=== PATIENT | male | born 1955 | race Caucasian/White ===

== ENCOUNTER 2021-11-15 17:40 | Inpatient (IN) ==
[2021-11-15] MEDS ORDERED: Nitroglycerin 0.4 MG TAB.SUBL SL PRN (18:46)
[2021-11-15] MEDS ORDERED: *HR* Dextrose 50 % in Water (Syg) 50 ML SYRINGE IVP PRN (18:51)
[2021-11-15] MEDS ORDERED: Dextrose Gel 15 GM/37.5 ML TUBE PO PRN ×2 (18:51)
[2021-11-15] MEDS ORDERED: D5% in Water 1,000 ML IVC PRN (18:51)
[2021-11-15] MEDS ORDERED: Ondansetron ODT 4 MG TAB.RAPDIS SL PRN (18:53)
[2021-11-15] MEDS: Ranolazine 500 MG TAB.ER.12H PO SCH (22:36)
[2021-11-15] MEDS: *HR* OxyCODONE/APAP 5/325 TABLET PO PRN (22:37)
[2021-11-15] MEDS: Insulin LISPRO 300 UNITS/3 ML VIAL SUBQ SCH (22:37)
[2021-11-15] MEDS: Acetaminophen 325 MG TABLET PO PRN (23:24)
[2021-11-16 05:58] LABS: Basophils # 0.1 K/mcL (0.0-0.2); Basophils % 0.8 %; Eosinophils # 0.2 K/mcL (0.0-0.6); Eosinophils % 2.8 %; Hematocrit 46.8 % (37.5-50.1); Hemoglobin 15.6 g/dL (12.9-16.9); Immature Granulocytes % 0.8 % (0-4); Lymphocytes # 2.9 K/mcL (0.6-4.6); Lymphocytes % 36.4 %; Mean Corpuscular HGB Conc 33.3 g/dL (31.6-35.5); Mean Platelet Volume 9.8 fL (9.4-12.4); Monocytes # 0.7 K/mcL (0.0-1.3); Monocytes % 8.9 %; Platelet Count 255 K/mcL (140-400); Red Blood Count 5.38 M/mcL (4.19-5.50); Red Cell Distribution Width 13.9 % (11.5-14.5); Segmented Neutrophils % 50.3 %
[2021-11-16 06:34] LABS: INR 2.4; Prothrombin Time 27.1 Seconds (9.4-12.1)
[2021-11-16 07:54] LABS: Calcium 9.6 mg/dL (8.6-10.3); Potassium 4.1 mEq/L (3.5-5.1)
[2021-11-16] MEDS: amLODIPine 5 MG TABLET PO SCH (08:26)
[2021-11-16] MEDS: Aspirin Enteric Coated 81 MG Tablet PO SCH (08:26)
[2021-11-16] MEDS: Fenofibrate 54 MG TABLET PO SCH (08:26)
[2021-11-16] MEDS: BuPROPion XL (24 HR) 150 MG TABLET PO SCH (08:26)
[2021-11-16] MEDS: Magnesium Oxide 400 MG TABLET PO SCH (08:26)
[2021-11-16] MEDS: Ranolazine 500 MG TAB.ER.12H PO SCH ×2 (08:26→20:17)
[2021-11-16] MEDS: Omega-3 Acid Ethyl Esters [Lovaza] 1 GM PO SCH ×2 (08:27→20:34)
[2021-11-16] MEDS: Insulin LISPRO 300 UNITS/3 ML VIAL SUBQ SCH ×4 (08:31→20:18)
[2021-11-16] MEDS: *HR* Insulin Regular U-500 500 UNIT/ML SUBQ SCH ×3 (09:28→17:16)
[2021-11-16] MEDS: *HR* OxyCODONE/APAP 5/325 TABLET PO PRN (13:58)
[2021-11-16] MEDS ORDERED: *HR* Warfarin 2.5 MG TABLET PO ONE (18:00)
[2021-11-16] MEDS ORDERED: Warfarin perPT PO PRN (18:00)
[2021-11-17 07:54] LABS: INR 2.7; Prothrombin Time 30.3 Seconds (9.4-12.1)
[2021-11-17] MEDS: Insulin LISPRO 300 UNITS/3 ML VIAL SUBQ SCH ×4 (09:22→20:28)
[2021-11-17] MEDS: Omega-3 Acid Ethyl Esters [Lovaza] 1 GM PO SCH ×2 (09:23→20:27)
[2021-11-17] MEDS: Magnesium Oxide 400 MG TABLET PO SCH (09:23)
[2021-11-17] MEDS: BuPROPion XL (24 HR) 150 MG TABLET PO SCH (09:23)
[2021-11-17] MEDS: Ranolazine 500 MG TAB.ER.12H PO SCH ×2 (09:23→20:27)
[2021-11-17] MEDS: Fenofibrate 54 MG TABLET PO SCH (09:23)
[2021-11-17] MEDS: amLODIPine 5 MG TABLET PO SCH (09:23)
[2021-11-17] MEDS: Aspirin Enteric Coated 81 MG Tablet PO SCH (09:23)
[2021-11-17] MEDS: *HR* Insulin Regular U-500 500 UNIT/ML SUBQ SCH ×3 (09:24→17:02)
[2021-11-17] MEDS: *HR* OxyCODONE/APAP 5/325 TABLET PO PRN (10:51)
[2021-11-17] MEDS: Acetaminophen 325 MG TABLET PO PRN (12:31)
[2021-11-17] MEDS ORDERED: *HR* OxyCODONE/APAP 5/325 TABLET PO PRN (14:23)
[2021-11-17] MEDS: *HR* OxyCODONE/APAP 7.5/325 TABLET PO PRN (14:32)
[2021-11-17] MEDS ORDERED: *HR* Warfarin 2.5 MG TABLET PO ONE (18:00)
[2021-11-18] MEDS: *HR* OxyCODONE/APAP 7.5/325 TABLET PO PRN ×2 (00:05→20:58)
[2021-11-18] MEDS: Insulin LISPRO 300 UNITS/3 ML VIAL SUBQ SCH ×4 (07:22→21:30)
[2021-11-18 07:37] LABS: INR 2.6
[2021-11-18] MEDS: amLODIPine 5 MG TABLET PO SCH (08:33)
[2021-11-18] MEDS: Magnesium Oxide 400 MG TABLET PO SCH (08:33)
[2021-11-18] MEDS: Ranolazine 500 MG TAB.ER.12H PO SCH ×2 (08:33→20:58)
[2021-11-18] MEDS: Fenofibrate 54 MG TABLET PO SCH (08:33)
[2021-11-18] MEDS: BuPROPion XL (24 HR) 150 MG TABLET PO SCH (08:34)
[2021-11-18] MEDS: Aspirin Enteric Coated 81 MG Tablet PO SCH (08:34)
[2021-11-18] MEDS: Omega-3 Acid Ethyl Esters [Lovaza] 1 GM PO SCH ×2 (08:35→21:30)
[2021-11-18] MEDS: *HR* Insulin Regular U-500 500 UNIT/ML SUBQ SCH ×3 (09:04→18:01)
[2021-11-18] MEDS ORDERED: *HR* Warfarin 2.5 MG TABLET PO ONE (18:00)
[2021-11-19] MEDS: Insulin LISPRO 300 UNITS/3 ML VIAL SUBQ SCH ×4 (07:35→20:48)
[2021-11-19 09:15] LABS: INR 2.3
[2021-11-19] MEDS: Fenofibrate 54 MG TABLET PO SCH (09:51)
[2021-11-19] MEDS: Aspirin Enteric Coated 81 MG Tablet PO SCH (09:51)
[2021-11-19] MEDS: amLODIPine 5 MG TABLET PO SCH (09:53)
[2021-11-19] MEDS: Magnesium Oxide 400 MG TABLET PO SCH (09:53)
[2021-11-19] MEDS: BuPROPion XL (24 HR) 150 MG TABLET PO SCH (09:53)
[2021-11-19] MEDS: Ranolazine 500 MG TAB.ER.12H PO SCH ×2 (09:53→20:47)
[2021-11-19] MEDS: Omega-3 Acid Ethyl Esters [Lovaza] 1 GM PO SCH ×2 (09:54→20:49)
[2021-11-19] MEDS: *HR* Insulin Regular U-500 500 UNIT/ML SUBQ SCH ×3 (12:11→18:50)
[2021-11-19] MEDS ORDERED: *HR* Warfarin 5 MG TABLET PO ONE (18:00)
[2021-11-20] MEDS: Insulin LISPRO 300 UNITS/3 ML VIAL SUBQ SCH ×4 (08:03→20:38)
[2021-11-20] MEDS: Ranolazine 500 MG TAB.ER.12H PO SCH ×2 (08:17→20:02)
[2021-11-20] MEDS: BuPROPion XL (24 HR) 150 MG TABLET PO SCH (08:18)
[2021-11-20] MEDS: Fenofibrate 54 MG TABLET PO SCH (08:18)
[2021-11-20] MEDS: Aspirin Enteric Coated 81 MG Tablet PO SCH (08:18)
[2021-11-20] MEDS: amLODIPine 5 MG TABLET PO SCH (08:18)
[2021-11-20] MEDS: Magnesium Oxide 400 MG TABLET PO SCH (08:18)
[2021-11-20] MEDS: Omega-3 Acid Ethyl Esters [Lovaza] 1 GM PO SCH ×2 (08:20→21:24)
[2021-11-20] MEDS: *HR* Insulin Regular U-500 500 UNIT/ML SUBQ SCH ×3 (08:27→17:46)
[2021-11-20 09:38] LABS: INR 2.1; Prothrombin Time 23.4 Seconds (9.4-12.1)
[2021-11-20] MEDS ORDERED: *HR* Warfarin 2.5 MG TABLET PO ONE (18:00)
[2021-11-21] MEDS: Insulin LISPRO 300 UNITS/3 ML VIAL SUBQ SCH ×4 (07:28→21:18)
[2021-11-21 07:58] LABS: INR 2.3; Prothrombin Time 25.6 Seconds (9.4-12.1)
[2021-11-21] MEDS: BuPROPion XL (24 HR) 150 MG TABLET PO SCH (08:08)
[2021-11-21] MEDS: Magnesium Oxide 400 MG TABLET PO SCH (08:08)
[2021-11-21] MEDS: amLODIPine 5 MG TABLET PO SCH (08:08)
[2021-11-21] MEDS: Aspirin Enteric Coated 81 MG Tablet PO SCH (08:09)
[2021-11-21] MEDS: Fenofibrate 54 MG TABLET PO SCH (08:09)
[2021-11-21] MEDS: Ranolazine 500 MG TAB.ER.12H PO SCH ×2 (08:09→21:18)
[2021-11-21] MEDS: *HR* Insulin Regular U-500 500 UNIT/ML SUBQ SCH ×3 (09:06→17:09)
[2021-11-21] MEDS: Omega-3 Acid Ethyl Esters [Lovaza] 1 GM PO SCH ×2 (09:08→21:19)
[2021-11-21] MEDS ORDERED: *HR* Warfarin 5 MG TABLET PO ONE (18:00)
[2021-11-22 07:30] LABS: INR 2.6; Prothrombin Time 28.3 Seconds (9.4-12.1)
[2021-11-22 07:35] VITALS: BP 153/70; PULSE 57; RESP 18; TEMP 98.2; O2SAT 94
[2021-11-22] MEDS: Fenofibrate 54 MG TABLET PO SCH (07:46)
[2021-11-22] MEDS: BuPROPion XL (24 HR) 150 MG TABLET PO SCH (07:47)
[2021-11-22] MEDS: Ranolazine 500 MG TAB.ER.12H PO SCH (07:47)
[2021-11-22] MEDS: Magnesium Oxide 400 MG TABLET PO SCH (07:47)
[2021-11-22] MEDS: Aspirin Enteric Coated 81 MG Tablet PO SCH (07:48)
[2021-11-22] MEDS: amLODIPine 5 MG TABLET PO SCH (07:48)
[2021-11-22] MEDS: Omega-3 Acid Ethyl Esters [Lovaza] 1 GM PO SCH (07:52)
[2021-11-22] MEDS: Insulin LISPRO 300 UNITS/3 ML VIAL SUBQ SCH ×2 (08:07→12:54)
[2021-11-22] MEDS: *HR* Insulin Regular U-500 500 UNIT/ML SUBQ SCH ×2 (08:47→12:58)
[2021-11-22] MEDS ORDERED: *HR* Warfarin 2.5 MG TABLET PO ONE (18:00)
== END 2021-11-22 16:30 | disposition home health service (06) | DRG 689 ==
LOC: INPPIK 22:00
PROVIDERS: ADMIT Family Medicine; ATTEND Family Medicine

== ENCOUNTER 2022-03-24 11:55 | Inpatient (IN) ==
[2022-03-24] MEDS ORDERED: Nitroglycerin 0.4 MG TAB.SUBL SL PRN (14:46)
[2022-03-24] MEDS ORDERED: Dextrose 4 GM Chewable Tablets PO PRN ×2 (15:02)
[2022-03-24] MEDS ORDERED: *HR* Dextrose 50 % in Water (Syg) 50 ML SYRINGE IVP PRN (15:02)
[2022-03-24] MEDS ORDERED: D5% in Water 1,000 ML IVC PRN (15:02)
[2022-03-24] MEDS: cephALEXin 500 MG CAPSULE PO SCH ×2 (16:59→21:18)
[2022-03-24] MEDS: Insulin LISPRO 300 UNITS/3 ML VIAL SUBQ SCH ×2 (17:02→20:58)
[2022-03-24] MEDS: *HR* OxyCODONE/APAP 5/325 TABLET PO PRN ×2 (17:58→21:39)
[2022-03-24] MEDS: Ranolazine 500 MG TAB.ER.12H PO SCH (21:18)
[2022-03-24] MEDS: Nystatin Cream 15 GM TUBE TP SCH (21:18)
[2022-03-24] MEDS: Nystatin POWDER 30 GM BOTTLE TP SCH (21:18)
[2022-03-24] MEDS: *HR* Enoxaparin 120 MG/0.8 ML SYRINGE SQ SCH (21:33)
[2022-03-24] MEDS: *HR* Insulin Regular U-500 500 UNIT/ML SUBQ SCH (23:38)
[2022-03-24] MEDS ORDERED: Morphine Sulfate 2 MG/ML SYRINGE IVP PRN (23:56)
[2022-03-25 02:34] LABS: Bilirubin,Urine Negative (Negative); Blood,Urine Moderate (Negative); Clarity,Urine Cloudy (Clear); Glucose,Urine (UA) 250 mg/dL (Normal); Ketones,Urine Negative (Negative); Leukocyte Esterase,Urine Moderate (Negative); Nitrite,Urine Negative (Negative); Protein,Urine 100 mg/dL (Neg-Trace); Urobilinogen,Urine Normal (Normal)
[2022-03-25 02:35] LABS: Color,Urine Light Yellow (Yellow)
[2022-03-25 02:41] LABS: RBC,Urine Present per hpf (0-3); WBC,Urine TNTC per hpf (0-3)
[2022-03-25] MEDS: *HR* OxyCODONE/APAP 5/325 TABLET PO PRN (03:56)
[2022-03-25] MEDS: hydrOXYzine pamoate 25 MG CAPSULE PO PRN (03:57)
[2022-03-25 07:18] LABS: Basophils # 0.1 K/mcL (0.0-0.2); Basophils % 0.9 %; Eosinophils # 0.2 K/mcL (0.0-0.6); Eosinophils % 1.9 %; Hematocrit 43.7 % (37.5-50.1); Hemoglobin 13.6 g/dL (12.9-16.9); Immature Granulocytes % 1.9 % (0-4); Lymphocytes # 2.9 K/mcL (0.6-4.6); Lymphocytes % 37.3 %; Mean Corpuscular HGB Conc 31.1 g/dL (31.6-35.5); Mean Corpuscular Hemoglobin 27.4 pg (28.0-33.3); Mean Corpuscular Volume 88.1 fL (83.0-100.0); Mean Platelet Volume 10.3 fL (9.4-12.4); Monocytes # 0.8 K/mcL (0.0-1.3); Neutrophils # 3.8 K/mcL (1.6-8.9); Platelet Count 287 K/mcL (140-400); Red Blood Count 4.96 M/mcL (4.19-5.50); Red Cell Distribution Width 13.9 % (11.5-14.5); White Blood Count 7.9 K/mcL (4.3-11.1)
[2022-03-25 07:38] LABS: BUN/Creatinine Ratio 27 (6-26); Blood Urea Nitrogen 36 mg/dL (8-23); Calcium 9.2 mg/dL (8.6-10.3); Carbon Dioxide 24 mEq/L (23-29); Chloride 102 mEq/L (98-107); Glucose 253 mg/dL (70-105); Osmolality,Calculated 299 (280-300); Potassium 4.2 mEq/L (3.5-5.1); Sodium 136 mEq/L (136-145); eGFR For African Americans > 60 (> 60); eGFR For Non-African Americans 54 (> 60)
[2022-03-25] MEDS: *HR* HYDROmorphone 2 MG TABLET PO PRN ×3 (08:45→18:21)
[2022-03-25] MEDS: Fenofibrate 54 MG TABLET PO SCH (08:45)
[2022-03-25] MEDS: Aspirin Enteric Coated 81 MG Tablet PO SCH (08:46)
[2022-03-25] MEDS: Loratadine 10 MG TABLET PO SCH (08:46)
[2022-03-25] MEDS: Vitamin B Complex/Vit C/Vit E 1 EACH TABLET PO SCH (08:46)
[2022-03-25] MEDS: Ranolazine 500 MG TAB.ER.12H PO SCH ×2 (08:46→20:49)
[2022-03-25] MEDS: BuPROPion XL (24 HR) 150 MG TABLET PO SCH (08:46)
[2022-03-25] MEDS: Magnesium Oxide 400 MG TABLET PO SCH (08:47)
[2022-03-25] MEDS: *HR* Enoxaparin 120 MG/0.8 ML SYRINGE SQ SCH ×2 (08:47→20:53)
[2022-03-25] MEDS: cephALEXin 500 MG CAPSULE PO SCH ×4 (08:47→20:49)
[2022-03-25] MEDS: Insulin LISPRO 300 UNITS/3 ML VIAL SUBQ SCH ×4 (08:47→20:49)
[2022-03-25] MEDS: amLODIPine 5 MG TABLET PO SCH (08:47)
[2022-03-25] MEDS: Nystatin POWDER 30 GM BOTTLE TP SCH ×2 (08:49→21:11)
[2022-03-25] MEDS: Nystatin Cream 15 GM TUBE TP SCH ×2 (08:49→21:11)
[2022-03-25] MEDS: *HR* Insulin Regular U-500 500 UNIT/ML SUBQ SCH ×3 (09:02→20:49)
[2022-03-26] MEDS: *HR* Enoxaparin 120 MG/0.8 ML SYRINGE SQ SCH ×2 (08:17→21:06)
[2022-03-26] MEDS: Ranolazine 500 MG TAB.ER.12H PO SCH ×2 (08:21→21:06)
[2022-03-26] MEDS: Fenofibrate 54 MG TABLET PO SCH (08:21)
[2022-03-26] MEDS: Vitamin B Complex/Vit C/Vit E 1 EACH TABLET PO SCH (08:21)
[2022-03-26] MEDS: Aspirin Enteric Coated 81 MG Tablet PO SCH (08:22)
[2022-03-26] MEDS: amLODIPine 5 MG TABLET PO SCH (08:22)
[2022-03-26] MEDS: Magnesium Oxide 400 MG TABLET PO SCH (08:22)
[2022-03-26] MEDS: BuPROPion XL (24 HR) 150 MG TABLET PO SCH (08:22)
[2022-03-26] MEDS: Loratadine 10 MG TABLET PO SCH (08:22)
[2022-03-26] MEDS: cephALEXin 500 MG CAPSULE PO SCH ×4 (08:22→21:06)
[2022-03-26] MEDS: Insulin LISPRO 300 UNITS/3 ML VIAL SUBQ SCH ×4 (08:23→21:06)
[2022-03-26] MEDS: *HR* Insulin Regular U-500 500 UNIT/ML SUBQ SCH ×2 (08:23→12:14)
[2022-03-26] MEDS: Nystatin Cream 15 GM TUBE TP SCH ×2 (08:24→21:08)
[2022-03-26] MEDS: Nystatin POWDER 30 GM BOTTLE TP SCH ×2 (08:24→21:08)
[2022-03-26] MEDS: *HR* HYDROmorphone 2 MG TABLET PO PRN ×2 (11:31→21:05)
[2022-03-27] MEDS: Acetaminophen 325 MG TABLET PO PRN (05:36)
[2022-03-27] MEDS: amLODIPine 5 MG TABLET PO SCH (09:07)
[2022-03-27] MEDS: Loratadine 10 MG TABLET PO SCH (09:08)
[2022-03-27] MEDS: Fenofibrate 54 MG TABLET PO SCH (09:09)
[2022-03-27] MEDS: Aspirin Enteric Coated 81 MG Tablet PO SCH (09:09)
[2022-03-27] MEDS: Vitamin B Complex/Vit C/Vit E 1 EACH TABLET PO SCH (09:09)
[2022-03-27] MEDS: Ranolazine 500 MG TAB.ER.12H PO SCH ×2 (09:09→20:12)
[2022-03-27] MEDS: BuPROPion XL (24 HR) 150 MG TABLET PO SCH (09:09)
[2022-03-27] MEDS: cephALEXin 500 MG CAPSULE PO SCH ×4 (09:09→20:12)
[2022-03-27] MEDS: Magnesium Oxide 400 MG TABLET PO SCH (09:09)
[2022-03-27] MEDS: Insulin LISPRO 300 UNITS/3 ML VIAL SUBQ SCH ×4 (09:10→20:13)
[2022-03-27] MEDS: *HR* Insulin Regular U-500 500 UNIT/ML SUBQ SCH ×2 (09:10→12:02)
[2022-03-27] MEDS: Nystatin POWDER 30 GM BOTTLE TP SCH ×2 (09:11→20:12)
[2022-03-27] MEDS: Nystatin Cream 15 GM TUBE TP SCH ×2 (09:11→20:13)
[2022-03-27] MEDS: *HR* Enoxaparin 120 MG/0.8 ML SYRINGE SQ SCH ×2 (09:11→20:12)
[2022-03-27] MEDS: Ergocalciferol (VIT D2) 50,000 UNIT (1.25MG) CAP PO SCH (09:14)
[2022-03-27] MEDS: *HR* HYDROmorphone 2 MG TABLET PO PRN ×2 (16:59→21:09)
[2022-03-27 18:27] LABS: Bilirubin,Urine Negative (Negative); Blood,Urine Moderate (Negative); Clarity,Urine Turbid (Clear); Color,Urine Yellow (Yellow); Glucose,Urine (UA) Normal (Normal); Ketones,Urine Negative (Negative); Leukocyte Esterase,Urine Large (Negative); Nitrite,Urine Negative (Negative); PH,Urine 5.5 pH Units (5.0-8.0); Protein,Urine 100 mg/dL (Neg-Trace); Urobilinogen,Urine Normal (Normal)
[2022-03-27 18:35] LABS: Squamous Epithelial Cell,Urine Few per hpf (None-Few); WBC,Urine TNTC per hpf (0-3)
[2022-03-27 18:36] LABS: Budding Yeast,Urine Few per hpf (None Seen)
[2022-03-28] MEDS: hydrOXYzine pamoate 25 MG CAPSULE PO PRN (01:11)
[2022-03-28 07:06] LABS: Basophils # 0.1 K/mcL (0.0-0.2); Basophils % 1.3 %; Eosinophils # 0.2 K/mcL (0.0-0.6); Eosinophils % 3.4 %; Hematocrit 43.8 % (37.5-50.1); Hemoglobin 13.5 g/dL (12.9-16.9); Immature Granulocytes % 2.1 % (0-4); Lymphocytes # 2.9 K/mcL (0.6-4.6); Lymphocytes % 40.4 %; Mean Corpuscular HGB Conc 30.8 g/dL (31.6-35.5); Mean Corpuscular Hemoglobin 27.1 pg (28.0-33.3); Mean Corpuscular Volume 87.8 fL (83.0-100.0); Mean Platelet Volume 10.2 fL (9.4-12.4); Monocytes # 0.5 K/mcL (0.0-1.3); Monocytes % 6.7 %; Neutrophils # 3.3 K/mcL (1.6-8.9); Platelet Count 272 K/mcL (140-400); Red Blood Count 4.99 M/mcL (4.19-5.50); Segmented Neutrophils % 46.1 %; White Blood Count 7.2 K/mcL (4.3-11.1)
[2022-03-28 07:28] LABS: BUN/Creatinine Ratio 21 (6-26); Blood Urea Nitrogen 29 mg/dL (8-23); Calcium 9.4 mg/dL (8.6-10.3); Carbon Dioxide 26 mEq/L (23-29); Chloride 102 mEq/L (98-107); Glucose 235 mg/dL (70-105); Osmolality,Calculated 295 (280-300); Potassium 4.2 mEq/L (3.5-5.1); Sodium 136 mEq/L (136-145); eGFR For African Americans > 60 (> 60); eGFR For Non-African Americans 53 (> 60)
[2022-03-28] MEDS: *HR* Enoxaparin 120 MG/0.8 ML SYRINGE SQ SCH ×2 (10:18→21:52)
[2022-03-28] MEDS: *HR* Insulin Regular U-500 500 UNIT/ML SUBQ SCH ×2 (10:19→11:17)
[2022-03-28] MEDS: Insulin LISPRO 300 UNITS/3 ML VIAL SUBQ SCH ×4 (10:19→21:52)
[2022-03-28] MEDS: amLODIPine 5 MG TABLET PO SCH (10:20)
[2022-03-28] MEDS: BuPROPion XL (24 HR) 150 MG TABLET PO SCH (10:20)
[2022-03-28] MEDS: Fenofibrate 54 MG TABLET PO SCH (10:20)
[2022-03-28] MEDS: Loratadine 10 MG TABLET PO SCH (10:20)
[2022-03-28] MEDS: Aspirin Enteric Coated 81 MG Tablet PO SCH (10:20)
[2022-03-28] MEDS: Ranolazine 500 MG TAB.ER.12H PO SCH ×2 (10:20→21:51)
[2022-03-28] MEDS: Nystatin Cream 15 GM TUBE TP SCH ×2 (10:21→21:53)
[2022-03-28] MEDS: cephALEXin 500 MG CAPSULE PO SCH ×4 (10:21→21:51)
[2022-03-28] MEDS: Vitamin B Complex/Vit C/Vit E 1 EACH TABLET PO SCH (10:21)
[2022-03-28] MEDS: Magnesium Oxide 400 MG TABLET PO SCH (10:21)
[2022-03-28] MEDS: Nystatin POWDER 30 GM BOTTLE TP SCH ×2 (10:22→21:53)
[2022-03-28] MEDS: *HR* HYDROmorphone 2 MG TABLET PO PRN (22:00)
[2022-03-29] MEDS: Insulin LISPRO 300 UNITS/3 ML VIAL SUBQ SCH ×4 (10:25→21:43)
[2022-03-29] MEDS: Ranolazine 500 MG TAB.ER.12H PO SCH ×2 (10:26→21:42)
[2022-03-29] MEDS: Fluconazole 150 MG TABLET PO SCH (10:26)
[2022-03-29] MEDS: Vitamin B Complex/Vit C/Vit E 1 EACH TABLET PO SCH (10:26)
[2022-03-29] MEDS: cephALEXin 500 MG CAPSULE PO SCH ×4 (10:26→21:42)
[2022-03-29] MEDS: BuPROPion XL (24 HR) 150 MG TABLET PO SCH (10:26)
[2022-03-29] MEDS: Fenofibrate 54 MG TABLET PO SCH (10:27)
[2022-03-29] MEDS: Loratadine 10 MG TABLET PO SCH (10:27)
[2022-03-29] MEDS: Aspirin Enteric Coated 81 MG Tablet PO SCH (10:27)
[2022-03-29] MEDS: Magnesium Oxide 400 MG TABLET PO SCH (10:27)
[2022-03-29] MEDS: amLODIPine 5 MG TABLET PO SCH (10:27)
[2022-03-29] MEDS: Nystatin Cream 15 GM TUBE TP SCH ×2 (10:28→21:42)
[2022-03-29] MEDS: Nystatin POWDER 30 GM BOTTLE TP SCH ×2 (10:28→21:42)
[2022-03-29] MEDS: *HR* Enoxaparin 120 MG/0.8 ML SYRINGE SQ SCH ×2 (10:28→21:43)
[2022-03-29] MEDS: *HR* Insulin Regular U-500 500 UNIT/ML SUBQ SCH ×2 (10:38→12:54)
[2022-03-29] MEDS: *HR* HYDROmorphone 2 MG TABLET PO PRN ×2 (15:40→21:46)
[2022-03-30] MEDS: Fenofibrate 54 MG TABLET PO SCH (09:54)
[2022-03-30] MEDS: *HR* Enoxaparin 120 MG/0.8 ML SYRINGE SQ SCH ×2 (09:54→21:00)
[2022-03-30] MEDS: Fluconazole 150 MG TABLET PO SCH (09:54)
[2022-03-30] MEDS: cephALEXin 500 MG CAPSULE PO SCH ×4 (09:55→21:00)
[2022-03-30] MEDS: amLODIPine 5 MG TABLET PO SCH (09:55)
[2022-03-30] MEDS: Vitamin B Complex/Vit C/Vit E 1 EACH TABLET PO SCH (09:55)
[2022-03-30] MEDS: Loratadine 10 MG TABLET PO SCH (09:55)
[2022-03-30] MEDS: Magnesium Oxide 400 MG TABLET PO SCH (09:55)
[2022-03-30] MEDS: BuPROPion XL (24 HR) 150 MG TABLET PO SCH (09:55)
[2022-03-30] MEDS: Ranolazine 500 MG TAB.ER.12H PO SCH ×2 (09:55→21:00)
[2022-03-30] MEDS: Nystatin POWDER 30 GM BOTTLE TP SCH ×2 (09:56→21:08)
[2022-03-30] MEDS: Nystatin Cream 15 GM TUBE TP SCH ×2 (09:56→21:08)
[2022-03-30] MEDS: Aspirin Enteric Coated 81 MG Tablet PO SCH (09:56)
[2022-03-30] MEDS: Insulin LISPRO 300 UNITS/3 ML VIAL SUBQ SCH ×4 (09:58→21:08)
[2022-03-30] MEDS: *HR* HYDROmorphone 2 MG TABLET PO PRN ×3 (10:02→21:00)
[2022-03-30] MEDS: *HR* Insulin Regular U-500 500 UNIT/ML SUBQ SCH ×2 (10:03→13:57)
[2022-03-31] MEDS: *HR* HYDROmorphone 2 MG TABLET PO PRN ×5 (01:42→21:46)
[2022-03-31] MEDS: Acetaminophen 325 MG TABLET PO PRN ×2 (04:59→13:27)
[2022-03-31] MEDS: Fluconazole 150 MG TABLET PO SCH (08:30)
[2022-03-31] MEDS: Fenofibrate 54 MG TABLET PO SCH (08:30)
[2022-03-31] MEDS: Loratadine 10 MG TABLET PO SCH (08:31)
[2022-03-31] MEDS: Magnesium Oxide 400 MG TABLET PO SCH (08:31)
[2022-03-31] MEDS: amLODIPine 5 MG TABLET PO SCH (08:31)
[2022-03-31] MEDS: Ranolazine 500 MG TAB.ER.12H PO SCH ×2 (08:31→21:46)
[2022-03-31] MEDS: Aspirin Enteric Coated 81 MG Tablet PO SCH (08:31)
[2022-03-31] MEDS: Vitamin B Complex/Vit C/Vit E 1 EACH TABLET PO SCH (08:31)
[2022-03-31] MEDS: BuPROPion XL (24 HR) 150 MG TABLET PO SCH (08:32)
[2022-03-31] MEDS: *HR* Enoxaparin 120 MG/0.8 ML SYRINGE SQ SCH ×2 (08:32→21:50)
[2022-03-31] MEDS: cephALEXin 500 MG CAPSULE PO SCH ×4 (08:32→21:46)
[2022-03-31] MEDS: Insulin LISPRO 300 UNITS/3 ML VIAL SUBQ SCH ×4 (08:33→20:20)
[2022-03-31] MEDS: *HR* Insulin Regular U-500 500 UNIT/ML SUBQ SCH ×2 (08:35→12:04)
[2022-03-31] MEDS: Nystatin POWDER 30 GM BOTTLE TP SCH ×2 (08:36→21:47)
[2022-03-31] MEDS: Nystatin Cream 15 GM TUBE TP SCH ×2 (11:45→21:49)
[2022-03-31] MEDS: hydrOXYzine pamoate 25 MG CAPSULE PO PRN (21:46)
[2022-04-01] MEDS: Fenofibrate 54 MG TABLET PO SCH (09:34)
[2022-04-01] MEDS: Fluconazole 150 MG TABLET PO SCH (09:34)
[2022-04-01] MEDS: Magnesium Oxide 400 MG TABLET PO SCH (09:35)
[2022-04-01] MEDS: Loratadine 10 MG TABLET PO SCH (09:35)
[2022-04-01] MEDS: Ranolazine 500 MG TAB.ER.12H PO SCH ×2 (09:35→22:32)
[2022-04-01] MEDS: Nystatin Cream 15 GM TUBE TP SCH ×2 (09:35→22:35)
[2022-04-01] MEDS: Aspirin Enteric Coated 81 MG Tablet PO SCH (09:35)
[2022-04-01] MEDS: amLODIPine 5 MG TABLET PO SCH (09:35)
[2022-04-01] MEDS: Nystatin POWDER 30 GM BOTTLE TP SCH ×2 (09:35→22:35)
[2022-04-01] MEDS: Vitamin B Complex/Vit C/Vit E 1 EACH TABLET PO SCH (09:35)
[2022-04-01] MEDS: cephALEXin 500 MG CAPSULE PO SCH ×4 (09:35→22:32)
[2022-04-01] MEDS: BuPROPion XL (24 HR) 150 MG TABLET PO SCH (09:35)
[2022-04-01] MEDS: *HR* Enoxaparin 120 MG/0.8 ML SYRINGE SQ SCH ×2 (09:42→22:32)
[2022-04-01] MEDS: Insulin LISPRO 300 UNITS/3 ML VIAL SUBQ SCH ×4 (09:42→22:33)
[2022-04-01] MEDS: *HR* Insulin Regular U-500 500 UNIT/ML SUBQ SCH ×2 (09:46→11:58)
[2022-04-01] MEDS: *HR* HYDROmorphone 2 MG TABLET PO PRN (22:40)
[2022-04-01] MEDS: hydrOXYzine pamoate 25 MG CAPSULE PO PRN (22:41)
[2022-04-02] MEDS: Acetaminophen 325 MG TABLET PO PRN (01:40)
[2022-04-02] MEDS: *HR* HYDROmorphone 2 MG TABLET PO PRN ×4 (04:21→21:08)
[2022-04-02] MEDS: Insulin LISPRO 300 UNITS/3 ML VIAL SUBQ SCH ×4 (08:59→21:08)
[2022-04-02] MEDS: *HR* Insulin Regular U-500 500 UNIT/ML SUBQ SCH ×2 (08:59→12:13)
[2022-04-02] MEDS: Fenofibrate 54 MG TABLET PO SCH (09:01)
[2022-04-02] MEDS: amLODIPine 5 MG TABLET PO SCH (09:02)
[2022-04-02] MEDS: BuPROPion XL (24 HR) 150 MG TABLET PO SCH (09:02)
[2022-04-02] MEDS: *HR* Enoxaparin 120 MG/0.8 ML SYRINGE SQ SCH ×2 (09:02→21:09)
[2022-04-02] MEDS: Magnesium Oxide 400 MG TABLET PO SCH (09:02)
[2022-04-02] MEDS: Aspirin Enteric Coated 81 MG Tablet PO SCH (09:02)
[2022-04-02] MEDS: Vitamin B Complex/Vit C/Vit E 1 EACH TABLET PO SCH (09:02)
[2022-04-02] MEDS: Ranolazine 500 MG TAB.ER.12H PO SCH ×2 (09:02→21:08)
[2022-04-02] MEDS: cephALEXin 500 MG CAPSULE PO SCH ×4 (09:02→21:07)
[2022-04-02] MEDS: Loratadine 10 MG TABLET PO SCH (09:02)
[2022-04-02] MEDS: Fluconazole 150 MG TABLET PO SCH (09:03)
[2022-04-02] MEDS: Nystatin POWDER 30 GM BOTTLE TP SCH ×2 (09:06→21:09)
[2022-04-02] MEDS: Nystatin Cream 15 GM TUBE TP SCH ×2 (09:06→21:09)
[2022-04-02] MEDS: hydrOXYzine pamoate 25 MG CAPSULE PO PRN (21:08)
[2022-04-03] MEDS: Vitamin B Complex/Vit C/Vit E 1 EACH TABLET PO SCH (08:53)
[2022-04-03] MEDS: Loratadine 10 MG TABLET PO SCH (08:53)
[2022-04-03] MEDS: *HR* Enoxaparin 120 MG/0.8 ML SYRINGE SQ SCH ×2 (08:53→20:24)
[2022-04-03] MEDS: cephALEXin 500 MG CAPSULE PO SCH ×2 (08:53→11:32)
[2022-04-03] MEDS: Fenofibrate 54 MG TABLET PO SCH (08:53)
[2022-04-03] MEDS: amLODIPine 5 MG TABLET PO SCH (08:53)
[2022-04-03] MEDS: Magnesium Oxide 400 MG TABLET PO SCH (08:54)
[2022-04-03] MEDS: Aspirin Enteric Coated 81 MG Tablet PO SCH (08:54)
[2022-04-03] MEDS: BuPROPion XL (24 HR) 150 MG TABLET PO SCH (08:54)
[2022-04-03] MEDS: *HR* Insulin Regular U-500 500 UNIT/ML SUBQ SCH ×2 (08:54→11:32)
[2022-04-03] MEDS: Insulin LISPRO 300 UNITS/3 ML VIAL SUBQ SCH ×4 (08:54→20:20)
[2022-04-03] MEDS: Ranolazine 500 MG TAB.ER.12H PO SCH ×2 (08:54→20:19)
[2022-04-03] MEDS: Nystatin POWDER 30 GM BOTTLE TP SCH ×2 (08:55→20:20)
[2022-04-03] MEDS: Nystatin Cream 15 GM TUBE TP SCH ×2 (08:55→20:24)
[2022-04-03] MEDS: Ergocalciferol (VIT D2) 50,000 UNIT (1.25MG) CAP PO SCH (08:58)
[2022-04-03] MEDS: *HR* HYDROmorphone 2 MG TABLET PO PRN ×3 (09:04→20:19)
[2022-04-03] MEDS: hydrOXYzine pamoate 25 MG CAPSULE PO PRN (20:19)
[2022-04-04] MEDS: *HR* HYDROmorphone 2 MG TABLET PO PRN ×4 (01:06→21:30)
[2022-04-04] MEDS: Insulin LISPRO 300 UNITS/3 ML VIAL SUBQ SCH ×5 (08:33→21:31)
[2022-04-04] MEDS: Aspirin Enteric Coated 81 MG Tablet PO SCH (08:34)
[2022-04-04] MEDS: Loratadine 10 MG TABLET PO SCH (08:34)
[2022-04-04] MEDS: Magnesium Oxide 400 MG TABLET PO SCH (08:34)
[2022-04-04] MEDS: *HR* Enoxaparin 120 MG/0.8 ML SYRINGE SQ SCH ×2 (08:34→21:31)
[2022-04-04] MEDS: Fenofibrate 54 MG TABLET PO SCH (08:35)
[2022-04-04] MEDS: Ranolazine 500 MG TAB.ER.12H PO SCH ×2 (08:35→21:29)
[2022-04-04] MEDS: Vitamin B Complex/Vit C/Vit E 1 EACH TABLET PO SCH (08:35)
[2022-04-04] MEDS: amLODIPine 5 MG TABLET PO SCH (08:35)
[2022-04-04] MEDS: BuPROPion XL (24 HR) 150 MG TABLET PO SCH (08:35)
[2022-04-04] MEDS: Nystatin POWDER 30 GM BOTTLE TP SCH ×2 (08:36→21:32)
[2022-04-04] MEDS: Nystatin Cream 15 GM TUBE TP SCH ×2 (08:37→21:32)
[2022-04-04] MEDS: *HR* Insulin Regular U-500 500 UNIT/ML SUBQ SCH ×2 (08:54→12:00)
[2022-04-04] MEDS: hydrOXYzine pamoate 25 MG CAPSULE PO PRN (21:29)
[2022-04-05] MEDS: Vitamin B Complex/Vit C/Vit E 1 EACH TABLET PO SCH (08:34)
[2022-04-05] MEDS: Loratadine 10 MG TABLET PO SCH (08:34)
[2022-04-05] MEDS: Magnesium Oxide 400 MG TABLET PO SCH (08:34)
[2022-04-05] MEDS: Aspirin Enteric Coated 81 MG Tablet PO SCH (08:34)
[2022-04-05] MEDS: BuPROPion XL (24 HR) 150 MG TABLET PO SCH (08:34)
[2022-04-05] MEDS: Ranolazine 500 MG TAB.ER.12H PO SCH ×2 (08:34→20:45)
[2022-04-05] MEDS: Fenofibrate 54 MG TABLET PO SCH (08:35)
[2022-04-05] MEDS: *HR* Enoxaparin 120 MG/0.8 ML SYRINGE SQ SCH ×2 (08:35→20:44)
[2022-04-05] MEDS: amLODIPine 5 MG TABLET PO SCH (08:35)
[2022-04-05] MEDS: Insulin LISPRO 300 UNITS/3 ML VIAL SUBQ SCH ×4 (08:36→20:46)
[2022-04-05] MEDS: *HR* Insulin Regular U-500 500 UNIT/ML SUBQ SCH ×2 (08:38→11:38)
[2022-04-05] MEDS: Nystatin Cream 15 GM TUBE TP SCH ×2 (08:41→20:45)
[2022-04-05] MEDS: Nystatin POWDER 30 GM BOTTLE TP SCH ×2 (08:41→20:46)
[2022-04-05] MEDS: *HR* HYDROmorphone 2 MG TABLET PO PRN ×3 (11:44→20:47)
[2022-04-05] MEDS: hydrOXYzine pamoate 25 MG CAPSULE PO PRN (20:46)
[2022-04-06] MEDS: *HR* HYDROmorphone 2 MG TABLET PO PRN ×3 (01:50→17:02)
[2022-04-06] MEDS: Magnesium Oxide 400 MG TABLET PO SCH (07:56)
[2022-04-06] MEDS: BuPROPion XL (24 HR) 150 MG TABLET PO SCH (07:56)
[2022-04-06] MEDS: Vitamin B Complex/Vit C/Vit E 1 EACH TABLET PO SCH (07:56)
[2022-04-06] MEDS: Loratadine 10 MG TABLET PO SCH (07:56)
[2022-04-06] MEDS: Fenofibrate 54 MG TABLET PO SCH (07:56)
[2022-04-06] MEDS: Aspirin Enteric Coated 81 MG Tablet PO SCH (07:56)
[2022-04-06] MEDS: *HR* Insulin Regular U-500 500 UNIT/ML SUBQ SCH ×2 (07:57→12:07)
[2022-04-06] MEDS: amLODIPine 5 MG TABLET PO SCH (07:57)
[2022-04-06] MEDS: Ranolazine 500 MG TAB.ER.12H PO SCH ×2 (07:57→21:10)
[2022-04-06] MEDS: *HR* Enoxaparin 120 MG/0.8 ML SYRINGE SQ SCH ×2 (07:57→21:10)
[2022-04-06] MEDS: Insulin LISPRO 300 UNITS/3 ML VIAL SUBQ SCH ×4 (08:01→21:27)
[2022-04-06] MEDS: hydrOXYzine pamoate 25 MG CAPSULE PO PRN (08:01)
[2022-04-06] MEDS: Nystatin POWDER 30 GM BOTTLE TP SCH ×2 (08:02→21:14)
[2022-04-06] MEDS: Nystatin Cream 15 GM TUBE TP SCH ×2 (08:02→21:14)
[2022-04-06 09:21] LABS: Basophils # 0.1 K/mcL (0.0-0.2); Basophils % 1.2 %; Eosinophils # 0.2 K/mcL (0.0-0.6); Eosinophils % 3.7 %; Hematocrit 46.3 % (37.5-50.1); Hemoglobin 14.3 g/dL (12.9-16.9); Immature Granulocytes % 1.1 % (0-4); Lymphocytes # 2.3 K/mcL (0.6-4.6); Lymphocytes % 41.3 %; Mean Corpuscular HGB Conc 30.9 g/dL (31.6-35.5); Mean Corpuscular Hemoglobin 27.7 pg (28.0-33.3); Mean Corpuscular Volume 89.7 fL (83.0-100.0); Mean Platelet Volume 10.1 fL (9.4-12.4); Monocytes # 0.3 K/mcL (0.0-1.3); Monocytes % 5.7 %; Neutrophils # 2.7 K/mcL (1.6-8.9); Platelet Count 192 K/mcL (140-400); Red Blood Count 5.16 M/mcL (4.19-5.50); Red Cell Distribution Width 14.6 % (11.5-14.5); White Blood Count 5.7 K/mcL (4.3-11.1)
[2022-04-06 09:49] LABS: Calcium 9.9 mg/dL (8.6-10.3); Potassium 4.2 mEq/L (3.5-5.1)
[2022-04-07] MEDS: Fenofibrate 54 MG TABLET PO SCH (08:50)
[2022-04-07] MEDS: Magnesium Oxide 400 MG TABLET PO SCH (08:50)
[2022-04-07] MEDS: Ranolazine 500 MG TAB.ER.12H PO SCH ×2 (08:50→20:13)
[2022-04-07] MEDS: Vitamin B Complex/Vit C/Vit E 1 EACH TABLET PO SCH (08:50)
[2022-04-07] MEDS: Insulin LISPRO 300 UNITS/3 ML VIAL SUBQ SCH ×4 (08:51→20:15)
[2022-04-07] MEDS: Aspirin Enteric Coated 81 MG Tablet PO SCH (08:51)
[2022-04-07] MEDS: BuPROPion XL (24 HR) 150 MG TABLET PO SCH (08:51)
[2022-04-07] MEDS: amLODIPine 5 MG TABLET PO SCH (08:51)
[2022-04-07] MEDS: *HR* Insulin Regular U-500 500 UNIT/ML SUBQ SCH ×2 (08:51→11:22)
[2022-04-07] MEDS: *HR* HYDROmorphone 2 MG TABLET PO PRN ×4 (08:51→22:59)
[2022-04-07] MEDS: *HR* Enoxaparin 120 MG/0.8 ML SYRINGE SQ SCH ×2 (08:51→20:12)
[2022-04-07] MEDS: Loratadine 10 MG TABLET PO SCH (08:51)
[2022-04-07] MEDS: Nystatin POWDER 30 GM BOTTLE TP SCH ×2 (08:52→20:13)
[2022-04-07] MEDS: Nystatin Cream 15 GM TUBE TP SCH ×2 (08:52→20:14)
[2022-04-07] MEDS: hydrOXYzine pamoate 25 MG CAPSULE PO PRN ×2 (11:22→20:13)
[2022-04-08] MEDS: *HR* HYDROmorphone 2 MG TABLET PO PRN ×3 (05:52→21:02)
[2022-04-08] MEDS: Aspirin Enteric Coated 81 MG Tablet PO SCH (08:59)
[2022-04-08] MEDS: Magnesium Oxide 400 MG TABLET PO SCH (09:00)
[2022-04-08] MEDS: Vitamin B Complex/Vit C/Vit E 1 EACH TABLET PO SCH (09:00)
[2022-04-08] MEDS: amLODIPine 5 MG TABLET PO SCH (09:01)
[2022-04-08] MEDS: Ranolazine 500 MG TAB.ER.12H PO SCH ×2 (09:01→20:58)
[2022-04-08] MEDS: Loratadine 10 MG TABLET PO SCH (09:01)
[2022-04-08] MEDS: BuPROPion XL (24 HR) 150 MG TABLET PO SCH (09:01)
[2022-04-08] MEDS: Fenofibrate 54 MG TABLET PO SCH (09:01)
[2022-04-08] MEDS: *HR* Insulin Regular U-500 500 UNIT/ML SUBQ SCH ×2 (09:01→11:50)
[2022-04-08] MEDS: Insulin LISPRO 300 UNITS/3 ML VIAL SUBQ SCH ×4 (09:06→20:55)
[2022-04-08] MEDS: *HR* Enoxaparin 120 MG/0.8 ML SYRINGE SQ SCH ×2 (09:07→20:58)
[2022-04-08] MEDS: Nystatin POWDER 30 GM BOTTLE TP SCH ×2 (09:12→21:03)
[2022-04-08] MEDS: Nystatin Cream 15 GM TUBE TP SCH ×2 (09:12→21:03)
[2022-04-08] MEDS: hydrOXYzine pamoate 25 MG CAPSULE PO PRN (23:02)
[2022-04-09] MEDS: *HR* HYDROmorphone 2 MG TABLET PO PRN ×4 (03:06→23:46)
[2022-04-09] MEDS: BuPROPion XL (24 HR) 150 MG TABLET PO SCH (08:29)
[2022-04-09] MEDS: Aspirin Enteric Coated 81 MG Tablet PO SCH (08:29)
[2022-04-09] MEDS: Magnesium Oxide 400 MG TABLET PO SCH (08:29)
[2022-04-09] MEDS: *HR* Enoxaparin 120 MG/0.8 ML SYRINGE SQ SCH ×2 (08:30→20:56)
[2022-04-09] MEDS: Fenofibrate 54 MG TABLET PO SCH (08:30)
[2022-04-09] MEDS: Loratadine 10 MG TABLET PO SCH (08:30)
[2022-04-09] MEDS: Ranolazine 500 MG TAB.ER.12H PO SCH ×2 (08:30→20:55)
[2022-04-09] MEDS: amLODIPine 5 MG TABLET PO SCH (08:30)
[2022-04-09] MEDS: Vitamin B Complex/Vit C/Vit E 1 EACH TABLET PO SCH (08:30)
[2022-04-09] MEDS: Insulin LISPRO 300 UNITS/3 ML VIAL SUBQ SCH ×4 (08:31→20:56)
[2022-04-09] MEDS: *HR* Insulin Regular U-500 500 UNIT/ML SUBQ SCH ×2 (08:32→11:48)
[2022-04-09] MEDS: Nystatin POWDER 30 GM BOTTLE TP SCH ×2 (08:36→20:57)
[2022-04-09] MEDS: Nystatin Cream 15 GM TUBE TP SCH ×2 (08:36→20:58)
[2022-04-10 07:45] LABS: Basophils % 0.8 %; Eosinophils # 0.2 K/mcL (0.0-0.6); Eosinophils % 4.1 %; Hematocrit 41.5 % (37.5-50.1); Hemoglobin 13.5 g/dL (12.9-16.9); Lymphocytes # 2.3 K/mcL (0.6-4.6); Lymphocytes % 45.2 %; Mean Corpuscular HGB Conc 32.5 g/dL (31.6-35.5); Mean Corpuscular Hemoglobin 28.4 pg (28.0-33.3); Mean Corpuscular Volume 87.2 fL (83.0-100.0); Monocytes # 0.4 K/mcL (0.0-1.3); Monocytes % 7.3 %; Neutrophils # 2.2 K/mcL (1.6-8.9); Platelet Count 157 K/mcL (140-400); Red Blood Count 4.76 M/mcL (4.19-5.50); Red Cell Distribution Width 14.3 % (11.5-14.5); Segmented Neutrophils % 41.6 %; White Blood Count 5.2 K/mcL (4.3-11.1)
[2022-04-10 08:13] LABS: Calcium 9.5 mg/dL (8.6-10.3); Potassium 4.2 mEq/L (3.5-5.1)
[2022-04-10] MEDS: Ranolazine 500 MG TAB.ER.12H PO SCH ×2 (08:56→21:25)
[2022-04-10] MEDS: Vitamin B Complex/Vit C/Vit E 1 EACH TABLET PO SCH (08:56)
[2022-04-10] MEDS: Aspirin Enteric Coated 81 MG Tablet PO SCH (08:56)
[2022-04-10] MEDS: Magnesium Oxide 400 MG TABLET PO SCH (08:57)
[2022-04-10] MEDS: Loratadine 10 MG TABLET PO SCH (08:57)
[2022-04-10] MEDS: *HR* HYDROmorphone 2 MG TABLET PO PRN ×3 (08:57→21:26)
[2022-04-10] MEDS: BuPROPion XL (24 HR) 150 MG TABLET PO SCH (08:57)
[2022-04-10] MEDS: Fenofibrate 54 MG TABLET PO SCH (08:58)
[2022-04-10] MEDS: amLODIPine 5 MG TABLET PO SCH (09:00)
[2022-04-10] MEDS: Insulin LISPRO 300 UNITS/3 ML VIAL SUBQ SCH ×4 (09:03→21:27)
[2022-04-10] MEDS: *HR* Insulin Regular U-500 500 UNIT/ML SUBQ SCH ×2 (09:07→12:05)
[2022-04-10] MEDS: *HR* Enoxaparin 120 MG/0.8 ML SYRINGE SQ SCH ×2 (09:07→21:27)
[2022-04-10] MEDS: Nystatin Cream 15 GM TUBE TP SCH ×2 (09:12→21:28)
[2022-04-10] MEDS: Nystatin POWDER 30 GM BOTTLE TP SCH ×2 (09:12→21:28)
[2022-04-10] MEDS: Ergocalciferol (VIT D2) 50,000 UNIT (1.25MG) CAP PO SCH (09:15)
[2022-04-11] MEDS: *HR* HYDROmorphone 2 MG TABLET PO PRN (04:23)
[2022-04-11] MEDS: Aspirin Enteric Coated 81 MG Tablet PO SCH (08:08)
[2022-04-11] MEDS: Ranolazine 500 MG TAB.ER.12H PO SCH ×2 (08:08→19:55)
[2022-04-11] MEDS: Vitamin B Complex/Vit C/Vit E 1 EACH TABLET PO SCH (08:08)
[2022-04-11] MEDS: amLODIPine 5 MG TABLET PO SCH (08:09)
[2022-04-11] MEDS: Magnesium Oxide 400 MG TABLET PO SCH (08:09)
[2022-04-11] MEDS: Loratadine 10 MG TABLET PO SCH (08:09)
[2022-04-11] MEDS: Fenofibrate 54 MG TABLET PO SCH (08:09)
[2022-04-11] MEDS: BuPROPion XL (24 HR) 150 MG TABLET PO SCH (08:10)
[2022-04-11] MEDS: *HR* Enoxaparin 120 MG/0.8 ML SYRINGE SQ SCH ×2 (08:10→19:56)
[2022-04-11] MEDS: *HR* Insulin Regular U-500 500 UNIT/ML SUBQ SCH ×2 (08:24→12:30)
[2022-04-11] MEDS: Insulin LISPRO 300 UNITS/3 ML VIAL SUBQ SCH ×4 (08:28→21:37)
[2022-04-11] MEDS: Nystatin POWDER 30 GM BOTTLE TP SCH ×2 (08:31→19:58)
[2022-04-11] MEDS: Nystatin Cream 15 GM TUBE TP SCH ×2 (08:32→19:59)
[2022-04-12] MEDS: Ranolazine 500 MG TAB.ER.12H PO SCH ×2 (08:01→21:12)
[2022-04-12] MEDS: BuPROPion XL (24 HR) 150 MG TABLET PO SCH (08:01)
[2022-04-12] MEDS: Fenofibrate 54 MG TABLET PO SCH (08:01)
[2022-04-12] MEDS: Vitamin B Complex/Vit C/Vit E 1 EACH TABLET PO SCH (08:01)
[2022-04-12] MEDS: Aspirin Enteric Coated 81 MG Tablet PO SCH (08:01)
[2022-04-12] MEDS: amLODIPine 5 MG TABLET PO SCH (08:02)
[2022-04-12] MEDS: Magnesium Oxide 400 MG TABLET PO SCH (08:02)
[2022-04-12] MEDS: *HR* Enoxaparin 120 MG/0.8 ML SYRINGE SQ SCH ×2 (08:02→21:12)
[2022-04-12] MEDS: Loratadine 10 MG TABLET PO SCH (08:02)
[2022-04-12] MEDS: Insulin LISPRO 300 UNITS/3 ML VIAL SUBQ SCH ×4 (08:03→21:12)
[2022-04-12] MEDS: Nystatin POWDER 30 GM BOTTLE TP SCH ×2 (08:09→21:13)
[2022-04-12] MEDS: Nystatin Cream 15 GM TUBE TP SCH ×2 (08:09→21:13)
[2022-04-12] MEDS: *HR* Insulin Regular U-500 500 UNIT/ML SUBQ SCH ×2 (08:14→12:58)
[2022-04-12] MEDS: *HR* HYDROmorphone 2 MG TABLET PO PRN ×2 (13:33→21:12)
[2022-04-12] MEDS: Acetaminophen 325 MG TABLET PO PRN (18:03)
[2022-04-13] MEDS: *HR* HYDROmorphone 2 MG TABLET PO PRN ×2 (02:56→08:55)
[2022-04-13 06:41] VITALS: BP 137/82; PULSE 71; RESP 19; TEMP 97.5; O2SAT 98
[2022-04-13] MEDS: Insulin LISPRO 300 UNITS/3 ML VIAL SUBQ SCH ×3 (08:38→13:24)
[2022-04-13] MEDS: Ranolazine 500 MG TAB.ER.12H PO SCH (08:49)
[2022-04-13] MEDS: Fenofibrate 54 MG TABLET PO SCH (08:49)
[2022-04-13] MEDS: Vitamin B Complex/Vit C/Vit E 1 EACH TABLET PO SCH (08:49)
[2022-04-13] MEDS: Loratadine 10 MG TABLET PO SCH (08:49)
[2022-04-13] MEDS: Aspirin Enteric Coated 81 MG Tablet PO SCH (08:50)
[2022-04-13] MEDS: BuPROPion XL (24 HR) 150 MG TABLET PO SCH (08:50)
[2022-04-13] MEDS: amLODIPine 5 MG TABLET PO SCH (08:50)
[2022-04-13] MEDS: Magnesium Oxide 400 MG TABLET PO SCH (08:51)
[2022-04-13] MEDS: *HR* Insulin Regular U-500 500 UNIT/ML SUBQ SCH ×2 (08:52→13:23)
[2022-04-13] MEDS: *HR* Enoxaparin 120 MG/0.8 ML SYRINGE SQ SCH (08:53)
[2022-04-13] MEDS: Nystatin POWDER 30 GM BOTTLE TP SCH (09:01)
[2022-04-13] MEDS: Nystatin Cream 15 GM TUBE TP SCH (09:01)
== END 2022-04-13 14:35 | disposition home health service (06) | DRG 560 ==
LOC: INPPIK 14:53
PROVIDERS: ADMIT Family Medicine; ATTEND Family Medicine